=== PATIENT | male | born 1955 | race African-American/Black ===

== ENCOUNTER 2020-11-01 07:49 | Observation (INO) | payer OTHER ==
[~2020-11-01] VITALS: Ht 193 cm; Wt 128.8 kg
[~2020-11-01 07:49] MED LIST: AMLODIPINE BESY10 MG PO; ASPIRIN81 MG PO; ATENOLOL50 MG PO; DIOVAN160 MG PO; LEVOCETIRIZINE D5 MG PO; LOSARTAN POTAS100 MG PO; METFORMIN HCL500 MG PO; NEURONTIN300 MG PO; NIACIN500 M2 PO; PIOGLITAZONE HC45 MG PO; ROPIVACAINE 246.25 MG, EPINEPHRINE HCL 1:1000 1ML 0.5 MG, CLONIDINE HCL 0.08 MG, KETORO... INJ ONE; SIMVASTATIN40 MG PO
[2020-11-01] MEDS ORDERED: GABAPENTIN 300 MG CAP ONE (08:13)
[2020-11-01] MEDS ORDERED: DEXAMETHASONE SOD PHOS 10 MG/1 ML VIAL ONE (08:13)
[2020-11-01] MEDS ORDERED: CELECOXIB 200 MG CAP ONE (08:13)
[2020-11-01] MEDS ORDERED: CEFAZOLIN SOD 1 GM/NS 50ML 100 ML IV ONE (08:14)
[2020-11-01] MEDS ORDERED: TRANEXAMIC ACID 1,000 MG/10 ML ML ONE (10:16)
[2020-11-01] MEDS ORDERED: VANCOMYCIN HCL 1,000 MG ONE (10:17)
[2020-11-01] MEDS ORDERED: SODIUM CHLORIDE 0.9% 500ML 500 ML ONE (10:17)
[2020-11-01] MEDS ORDERED: PROPOFOL IV EMULSION 10 MG/ML 20 ML VIAL ONE (12:00)
[2020-11-01] MEDS ORDERED: POVIDONE IODINE 0.05% 0.05 % ML PO ONE (12:00)
[2020-11-01] MEDS ORDERED: LIDOCAINE HCL 2% LOCAL INJ 5 ML SDV VIAL INJ ONE (12:00)
[2020-11-01] MEDS ORDERED: EPHEDRINE SULFATE INJ 50 MG/ML VIAL ONE (12:00)
[2020-11-01] MEDS ORDERED: ZOLPIDEM TARTRATE 5 MG TAB PO PRN (12:15)
[2020-11-01] MEDS ORDERED: HYDROCODONE/APAP 5MG-325MG TAB PO PRN (12:15)
[2020-11-01] MEDS ORDERED: DIPHENHYDRAMINE HCL INJ 50 MG/ML VIAL IV PRN (12:15)
[2020-11-01] MEDS ORDERED: DOCUSATE SODIUM 100 MG CAP PO PRN (12:15)
[2020-11-01] MEDS ORDERED: KETOROLAC TROMETHAMINE 30 MG/ML VIAL IV PRN (12:15)
[2020-11-01] MEDS ORDERED: ACETAMINOPHEN 650 MG SUPP PR PRN (12:15)
[2020-11-01] MEDS ORDERED: ONDANSETRON HCL INJ 2MG/ML 2ML 2 MG/ML VIAL IV PRN (12:15)
[2020-11-01] MEDS ORDERED: BUPIVACAINE HCL 0.5% INJ 30 ML VIAL INJ ONE (12:31)
[2020-11-01 16:44] VITALS: BP 128/79
[2020-11-01] MEDS ORDERED: DEXTROSE 50% SYRINGE 50 ML IV PRN (17:45)
[2020-11-01] MEDS: INDOMETHACIN 25 MG CAP PO SCH ×2 (17:55→22:06)
[2020-11-01] MEDS: SODIUM CHLORIDE 0.9% 1000ML 1,000 ML IV SCH (17:55)
[2020-11-01] MEDS: ASPIRIN 325 MG TAB PO SCH (17:55)
[2020-11-01] MEDS: INSULIN REGULAR, HUMAN 100 UNIT/1 ML 3ML VIAL SQ SCH ×2 (17:55→21:00)
[2020-11-01] MEDS: CEFAZOLIN SOD 1 GM/NS 50ML 50 ML IV SCH (17:56)
[2020-11-01 18:12] VITALS: BP 128/79
[2020-11-01 20:00] VITALS: BP 138/79
[2020-11-01] MEDS ORDERED: NIACIN 500 MG TABSR PO SCH (21:00)
[2020-11-01] MEDS ORDERED: PIOGLITAZONE HCL 15 MG TAB PO SCH (21:00)
[2020-11-01] MEDS ORDERED: SIMVASTATIN 40 MG TAB PO SCH (21:00)
[2020-11-01] MEDS: HYDROCODONE/APAP 7.5MG-325MG 1 EA TAB PO PRN (22:10)
[2020-11-02] VITALS: BP 120/75
[2020-11-02] MEDS: SODIUM CHLORIDE 0.9% 1000ML 1,000 ML IV SCH (01:05)
[2020-11-02] MEDS: CEFAZOLIN SOD 1 GM/NS 50ML 50 ML IV SCH ×2 (01:05→10:00)
[2020-11-02 04:00] VITALS: BP 131/78
[2020-11-02 07:04] LABS: BASOPHILS % 0.1 % (0.0-1.0); EOSINOPHILS % 0.1 % (0.0-6.0); HEMATOCRIT 35.7 % (38.2-49.6); HEMOGLOBIN 12.2 g/dL (14.0-18.0); LYMPHOCYTES # (AUTO) 0.6 (1.0-3.2); LYMPHOCYTES % 7.7 % (18.0-39.1); MEAN CORPUSCULAR HEMOGLOBIN 29.3 pg (28-32); MEAN CORPUSCULAR HGB CONC 34.2 g/dL (31-35); MEAN CORPUSCULAR VOLUME 85.6 fL (81-99); MONOCYTES # (AUTO) 0.8 (0.2-0.8); MONOCYTES % 9.6 % (4.4-11.3); NEUTROPHILS # (AUTO) 6.6 (2.1-6.9); PLATELET COUNT 232 x10e3/uL (140-360); RED BLOOD COUNT 4.17 x10e6/uL (4.3-5.7); RED CELL DISTRIBUTION WIDTH 14.6 % (11.7-14.4)
[2020-11-02 07:20] LABS: ANION GAP 12.9 mmol/L (8-16); BLOOD UREA NITROGEN 11 mg/dL (7-26); BUN/CREATININE RATIO 11 (6-25); CALCIUM 8.5 mg/dL (8.4-10.2); CARBON DIOXIDE 26 mmol/L (22-29); CHLORIDE 108 mmol/L (98-107); EST GLOMERULAR FILTRATION RATE > 60 ML/MIN (60-); GLUCOSE 116 mg/dL (74-118); POTASSIUM 3.9 mmol/L (3.5-5.1); SODIUM 143 mmol/L (136-145)
[2020-11-02] MEDS: INSULIN REGULAR, HUMAN 100 UNIT/1 ML 3ML VIAL SQ SCH (07:30)
[2020-11-02 07:37] VITALS: BP 120/74
[2020-11-02 07:38] VITALS: BP 120/74
[2020-11-02] MEDS ORDERED: METFORMIN HCL 500 MG TAB PO SCH (08:00)
[2020-11-02] MEDS: INDOMETHACIN 25 MG CAP PO SCH (08:33)
[2020-11-02] MEDS: ASPIRIN 325 MG TAB PO SCH (08:33)
[2020-11-02] MEDS ORDERED: ATENOLOL 50 MG TAB PO SCH (09:00)
[2020-11-02] MEDS ORDERED: NON-FORMULARY MEDICATION (Levocetirizine Dihydrochloride 5 MG) PO SCH (09:00)
[2020-11-02] MEDS ORDERED: AMLODIPINE BESYLATE 10 MG TAB PO SCH (09:00)
[2020-11-02] MEDS ORDERED: GABAPENTIN 300 MG CAP PO SCH (09:00)
[2020-11-02] MEDS ORDERED: LOSARTAN POTASSIUM 100 MG TAB PO SCH (09:00)
[2020-11-02] MEDS ORDERED: LORATADINE 10 MG TAB PO SCH (09:00)
[2020-11-02] MEDS: HYDROCODONE/APAP 7.5MG-325MG 1 EA TAB PO PRN (09:14)
[2020-11-02] MEDS ORDERED: ONDANSETRON HCL 4 MG ORAL DISINTEGRATING TAB PO PRN (10:00)
[2020-11-02 11:43] VITALS: BP 131/78
[2020-11-02] MEDS ORDERED: ACETAMINOPHEN 1000 MG/100 ML IV PRN (12:15)
== END 2020-11-02 13:28 | disposition home or self-care (01) ==
LOC: OR 07:49 → PACU V 12:31 → MED/SURG 16:44
PROVIDERS: ADMIT Specialist; ATTEND Specialist
DX: M16.12 Unilateral primary osteoarthritis, left hip (principal); Z96.641 Presence of right artificial hip joint; I10 Essential (primary) hypertension; E11.9 Type 2 diabetes mellitus without complications; Z01.818 Encounter for other preprocedural examination; E66.9 Obesity, unspecified; Z68.34 Body mass index [BMI] 34.0-34.9, adult; E78.5 Hyperlipidemia, unspecified; Z79.82 Long term (current) use of aspirin; Z79.84 Long term (current) use of oral hypoglycemic drugs
CPT/HCPCS: 36415; 71046; 72170; 80048; 82948; 85025; 86920; G0378; J0171; J0690; J1100; J1817; J1885; J2001; J2795; J3370; J7030; J7040